=== PATIENT | female | born 1950 | race Caucasian/White ===

== ENCOUNTER 2017-01-15 09:02 | Emergency (ER) | payer MEDICARE ==
[~2017-01-15] VITALS: Ht 167.6 cm; Wt 107.3 kg
[~2017-01-15 09:02] MED LIST: AMLO5TAB2 PO; CARV-39 PO; CARV6.252 PO; DOXY100T PO; FAMO20TA7 PO; FOLI-17 PO; FURO20TA3 PO; HYDR-3307 PO; HYDR-3343 PO; MULT-484 PO; Magnesium Oxide PO; NICO1PAT5 TD; PANT40TA5 PO; POTA20PA PO; PRED20TA PO; PRED50TA PO; THIA100T10 PO; TRAM-28 PO
[2017-01-15] MEDS ORDERED: SODIUM CHLORIDE 0.9% 1,000ML IVBOLUS ONE (09:30)
[2017-01-15] MEDS ORDERED: SODIUM CHLORIDE FLUSH 10ML SYR IVF ONE (09:30)
[2017-01-15] MEDS ORDERED: ONDANSETRON 2MG/ML, 2ML IVPush ONE (09:30)
[2017-01-15] MEDS ORDERED: ONDANSETRON 2MG/ML, 2ML ONE (09:30)
[2017-01-15] MEDS ORDERED: MORPHINE SULFATE 4 MG/ML, 1ML ONE ×2 (09:30→09:48)
[2017-01-15] MEDS: MORPHINE SULFATE 4 MG/ML, 1ML IVPush PRN ×2 (09:32→09:53)
[2017-01-15 10:15] LABS: HEMOGLOBIN 12.6 g/dL (11.7-16.4)
[2017-01-15 10:25] LABS: ASPARTATE AMINO TRANSFERASE 38 U/L (15-37); BLOOD UREA NITROGEN 10 mg/dL (7-18)
[2017-01-15] MEDS ORDERED: HYDROmorphone 1 MG/ML, 1ML ONE (10:44)
[2017-01-15] MEDS ORDERED: HYDROmorphone 1 MG/ML, 1ML IVPush PRN (11:00)
[2017-01-15] MEDS ORDERED: OMNIPAQUE 350 MG/ML, 100ML BOTTLE ONE (11:07)
[2017-01-15 11:35] VITALS: BP 133/51
[2017-01-16] MEDS ORDERED: POTA20TA91 PO (17:36)
== END 2017-01-15 13:11 | disposition home or self-care (01) ==
LOC: ED 11:18
DX: K70.30 Alcoholic cirrhosis of liver without ascites (principal); F10.20 Alcohol dependence, uncomplicated; F17.210 Nicotine dependence, cigarettes, uncomplicated
CPT/HCPCS: 36415; 74177; 80053; 81001; 83690; 85025; 87086; 96361; 96374; 96375; 99285; J1170; J2405; J7030; Q9967

== ENCOUNTER 2017-01-16 15:18 | Emergency (ER) | payer MEDICARE ==
[~2017-01-16] VITALS: Ht 167.6 cm; Wt 108.7 kg
[2017-01-16] MEDS ORDERED: POTA20TA91 PO (17:36)
[2017-01-16 18:22] LABS: HEMOGLOBIN 10.9 g/dL (11.7-16.4)
[2017-01-16] MEDS ORDERED: ONDANSETRON ODT 4 MG PO ONE (18:30)
[2017-01-16] MEDS ORDERED: HYDROmorphone 1 MG/ML, 1ML IM ONE (18:30)
[2017-01-16 18:31] LABS: ASPARTATE AMINO TRANSFERASE 36 U/L (15-37); BLOOD UREA NITROGEN 17 mg/dL (7-18)
[2017-01-16] MEDS ORDERED: ONDANSETRON 2MG/ML, 2ML ONE (18:44)
[2017-01-16] MEDS ORDERED: HYDROmorphone 1 MG/ML, 1ML ONE (18:44)
[2017-01-16] MEDS ORDERED: HYDROmorphone 1 MG/ML, 1ML IVPush PRN (19:00)
[2017-01-16] MEDS ORDERED: SODIUM CHLORIDE FLUSH 10ML SYR IVF ONE (19:00)
[2017-01-16] MEDS ORDERED: ONDANSETRON 2MG/ML, 2ML IVPush ONE (19:00)
[2017-01-16] MEDS ORDERED: SODIUM CHLORIDE 0.9% 1,000ML IVBOLUS ONE (19:00)
[2017-01-16 19:37] VITALS: BP 129/65
== END 2017-01-16 20:07 | disposition home or self-care (01) ==
LOC: ED 18:16
DX: K70.30 Alcoholic cirrhosis of liver without ascites (principal); D64.9 Anemia, unspecified; E87.1 Hypo-osmolality and hyponatremia; E66.01 Morbid (severe) obesity due to excess calories; Z68.38 Body mass index [BMI] 38.0-38.9, adult; I11.0 Hypertensive heart disease with heart failure; Z90.49 Acquired absence of other specified parts of digestive tract; Z90.710 Acquired absence of both cervix and uterus; Z88.0 Allergy status to penicillin
CPT/HCPCS: 36415; 76700; 80053; 81001; 83690; 85025; 96361; 96374; 96375; 99285; J1170; J2405; J7030

== ENCOUNTER 2017-01-20 12:30 | Inpatient (IN) | payer MEDICARE ==
[~2017-01-20] VITALS: Ht 167.6 cm; Wt 111.3 kg
[~2017-01-20 12:30] MED LIST changes: +POTA20TA91 PO
[2017-01-20] MEDS ORDERED: FAMO40TA4 PO (12:58)
[2017-01-20] MEDS ORDERED: SODIUM CHLORIDE FLUSH 10ML SYR IVF ONE (13:00)
[2017-01-20] MEDS ORDERED: methylPREDNISolone SOD SUCC 125 MG/2 ML IVP ONE (13:00)
[2017-01-20] MEDS ORDERED: ONDA4TAB10 PO (13:00)
[2017-01-20] MEDS ORDERED: methylPREDNISolone SOD SUCC 125 MG/2 ML ONE (13:24)
[2017-01-20 13:26] LABS: HEMOGLOBIN 10.3 g/dL (11.7-16.4)
[2017-01-20 13:36] LABS: ASPARTATE AMINO TRANSFERASE 35 U/L (15-37); BLOOD UREA NITROGEN 17 mg/dL (7-18)
[2017-01-20 13:42] LABS: IS PT STATUS REG ER OR PRE ER? YES
[2017-01-20 13:48] LABS: ABG COLLECTION SITE RIGHT RADIAL; COLLATERAL CIRCULATION TESTING NORMAL
[2017-01-20] MEDS ORDERED: FUROSEMIDE 40 MG/4 ML ONE (13:48)
[2017-01-20] MEDS ORDERED: NITROGLYCERIN OINT 2%, 1GM TP ONE ×2 (13:48→14:00)
[2017-01-20] MEDS ORDERED: MORPHINE SULFATE 4 MG/ML, 1ML ONE (13:48)
[2017-01-20] MEDS ORDERED: FUROSEMIDE 40 MG/4 ML IV ONE (14:00)
[2017-01-20] MEDS ORDERED: morphine SULFATE 10 MG/ML, 1ML IVPush ONE (14:00)
[2017-01-20] MEDS ORDERED: ASPIRIN 81 MG TABLET CHEW PO ONE (14:00)
[2017-01-20] MEDS ORDERED: ASPIRIN 81 MG TABLET CHEW ONE (14:23)
[2017-01-20] MEDS ORDERED: HEPARIN 5,000 UNITS/ML, 1ML IV ONE (14:30)
[2017-01-20] MEDS ORDERED: HEPARIN 25,000 UNITS/500ML PMX 500 ML IV PRN (14:30)
[2017-01-20] MEDS ORDERED: HEPARIN 25,000 UNITS/500ML PMX 500 ML ONE (14:33)
[2017-01-20] MEDS ORDERED: HEPARIN 5,000 UNITS/ML, 1ML ONE (14:33)
[2017-01-20] MEDS ORDERED: ACETAMINOPHEN 325 MG TABLET PO PRN (15:00)
[2017-01-20] MEDS ORDERED: ONDANSETRON 2MG/ML, 2ML IVP PRN (15:00)
[2017-01-20] MEDS ORDERED: ENALAPRILAT 1.25 MG/ML, 2ML IVPush PRN (15:00)
[2017-01-20 17:00] VITALS: BP 119/71
[2017-01-20] MEDS ORDERED: ALBUTEROL SULFATE 2.5 MG/3 ML NPPB PRN (17:00)
[2017-01-20] MEDS: HYDROcodone/APAP 5/325 TABLET PO PRN (17:26)
[2017-01-20] MEDS: FUROSEMIDE 20 MG/2 ML IV SCH (17:27)
[2017-01-20] MEDS: METOPROLOL TARTRATE 50 MG TABLET PO SCH (17:52)
[2017-01-20] MEDS: NICOTINE 14MG/24 HR PATCH.TD24 TD SCH (17:53)
[2017-01-20 18:16] VITALS: BP 119/71
[2017-01-20 18:48] VITALS: BP 129/72
[2017-01-20] MEDS: ATORVASTATIN 40 MG TABLET PO SCH (20:18)
[2017-01-20] MEDS: MORPHINE SULFATE 4 MG/ML, 1ML IVPush PRN (20:47)
[2017-01-20 21:21] LABS: IS PT STATUS REG ER OR PRE ER? NO
[2017-01-20] MEDS: HEPARIN 5,000 UNITS/ML, 1ML IV PRN (22:34)
[2017-01-21] MEDS: MORPHINE SULFATE 4 MG/ML, 1ML IVPush PRN ×5 (01:48→23:01)
[2017-01-21 01:49] VITALS: BP 138/81
[2017-01-21] MEDS: HYDROcodone/APAP 5/325 TABLET PO PRN ×3 (04:17→20:51)
[2017-01-21 05:54] LABS: ASPARTATE AMINO TRANSFERASE 30 U/L (15-37); BLOOD UREA NITROGEN 25 mg/dL (7-18)
[2017-01-21 05:56] LABS: IS PT STATUS REG ER OR PRE ER? NO
[2017-01-21] MEDS: HEPARIN 5,000 UNITS/ML, 1ML IV PRN (06:02)
[2017-01-21] MEDS: METOPROLOL TARTRATE 50 MG TABLET PO SCH ×2 (06:03→17:57)
[2017-01-21] MEDS: ASPIRIN 81 MG TABLET EC PO SCH (06:03)
[2017-01-21 06:06] LABS: HEMOGLOBIN 10.3 g/dL (11.7-16.4)
[2017-01-21 08:17] VITALS: BP 130/75
[2017-01-21] MEDS: FUROSEMIDE 20 MG/2 ML IV SCH ×2 (08:27→17:09)
[2017-01-21] MEDS: POTASSIUM CHLORIDE 20 MEQ TAB.ER.PRT PO SCH (08:28)
[2017-01-21] MEDS: PANTOPROZOLE 40MG TABLET PO SCH (08:28)
[2017-01-21] MEDS: methylPREDNISolone SOD SUCC 125 MG/2 ML IVPush SCH ×2 (13:45→20:28)
[2017-01-21] MEDS: ENOXAPARIN 40 MG/0.4 ML SQ SCH (15:52)
[2017-01-21] MEDS: NICOTINE 14MG/24 HR PATCH.TD24 TD SCH (15:52)
[2017-01-21 16:44] VITALS: BP 146/77
[2017-01-21 18:31] VITALS: BP 120/66
[2017-01-21] MEDS: ATORVASTATIN 40 MG TABLET PO SCH (20:28)
[2017-01-21] MEDS: TEMAZEPAM 15 MG CAPSULE PO PRN (23:01)
[2017-01-22 01:33] VITALS: BP 123/60
[2017-01-22] MEDS: methylPREDNISolone SOD SUCC 125 MG/2 ML IVPush SCH ×4 (03:24→21:09)
[2017-01-22] MEDS: MORPHINE SULFATE 4 MG/ML, 1ML IVPush PRN ×3 (03:25→21:09)
[2017-01-22 05:13] LABS: HEMOGLOBIN 9.8 g/dL (11.7-16.4)
[2017-01-22 05:56] LABS: BLOOD UREA NITROGEN 37 mg/dL (7-18)
[2017-01-22] MEDS: METOPROLOL TARTRATE 50 MG TABLET PO SCH ×2 (06:35→17:23)
[2017-01-22] MEDS: ASPIRIN 81 MG TABLET EC PO SCH (06:35)
[2017-01-22 08:08] VITALS: BP 126/68
[2017-01-22] MEDS: POTASSIUM CHLORIDE 20 MEQ TAB.ER.PRT PO SCH (08:47)
[2017-01-22] MEDS: PANTOPROZOLE 40MG TABLET PO SCH (08:48)
[2017-01-22] MEDS: FUROSEMIDE 20 MG/2 ML IV SCH ×2 (08:48→17:21)
[2017-01-22 13:49] VITALS: BP 143/78
[2017-01-22] MEDS: ENOXAPARIN 40 MG/0.4 ML SQ SCH (13:54)
[2017-01-22] MEDS: NICOTINE 14MG/24 HR PATCH.TD24 TD SCH (13:55)
[2017-01-22] MEDS: HYDROcodone/APAP 5/325 TABLET PO PRN (14:04)
[2017-01-22 20:30] VITALS: BP 124/70
[2017-01-22] MEDS: TEMAZEPAM 15 MG CAPSULE PO PRN (21:09)
[2017-01-22] MEDS: ATORVASTATIN 40 MG TABLET PO SCH (21:09)
[2017-01-23] MEDS: methylPREDNISolone SOD SUCC 125 MG/2 ML IVPush SCH ×3 (01:25→15:46)
[2017-01-23] MEDS: HYDROcodone/APAP 5/325 TABLET PO PRN (01:25)
[2017-01-23 03:18] VITALS: BP 144/73
[2017-01-23] MEDS: MORPHINE SULFATE 4 MG/ML, 1ML IVPush PRN (04:53)
[2017-01-23] MEDS: ASPIRIN 81 MG TABLET EC PO SCH (04:57)
[2017-01-23] MEDS: METOPROLOL TARTRATE 50 MG TABLET PO SCH (04:57)
[2017-01-23 05:36] LABS: BLOOD UREA NITROGEN 41 mg/dL (7-18); HEMOGLOBIN 10.5 g/dL (11.7-16.4)
[2017-01-23 05:38] LABS: ASPARTATE AMINO TRANSFERASE 43 U/L (15-37)
[2017-01-23 06:53] VITALS: BP 137/73
[2017-01-23] MEDS: PANTOPROZOLE 40MG TABLET PO SCH (07:57)
[2017-01-23] MEDS: FUROSEMIDE 20 MG/2 ML IV SCH (07:57)
[2017-01-23 13:19] VITALS: BP 133/70
[2017-01-23] MEDS: POTASSIUM CHLORIDE 20 MEQ TAB.ER.PRT PO SCH (15:46)
[2017-01-23] MEDS: ENOXAPARIN 40 MG/0.4 ML SQ SCH (15:46)
[2017-01-23] MEDS: NICOTINE 14MG/24 HR PATCH.TD24 TD SCH (15:47)
[2017-01-23] MEDS ORDERED: METO50TA82 PO (17:05)
[2017-01-23] MEDS ORDERED: ATOR40TA78 PO (17:05)
[2017-01-23] MEDS ORDERED: FURO40TA6 PO (17:05)
[2017-01-23] MEDS ORDERED: PRED10TA PO (17:05)
[2017-01-24] MEDS ORDERED: FUROSEMIDE 40 MG TABLET PO SCH (09:00)
== END 2017-01-23 18:19 | disposition home or self-care (01) | DRG 280 ==
LOC: ED 12:47 → EDIP 13:58 → 5SO 16:12
PROVIDERS: ADMIT Internal Medicine; ATTEND Internal Medicine
DX: I13.0 Hypertensive heart and chronic kidney disease with heart failure and stage 1 through stage 4 chronic kidney disease, or unspecified chronic kidney disease (principal); J96.21 Acute and chronic respiratory failure with hypoxia; I21.4 Non-ST elevation (NSTEMI) myocardial infarction; I50.31 Acute diastolic (congestive) heart failure; R65.10 Systemic inflammatory response syndrome (SIRS) of non-infectious origin without acute organ dysfunction; E87.1 Hypo-osmolality and hyponatremia; J44.1 Chronic obstructive pulmonary disease with (acute) exacerbation; K76.6 Portal hypertension; N17.9 Acute kidney failure, unspecified; B18.2 Chronic viral hepatitis C; D72.829 Elevated white blood cell count, unspecified; E66.01 Morbid (severe) obesity due to excess calories; Z68.39 Body mass index [BMI] 39.0-39.9, adult; E78.5 Hyperlipidemia, unspecified; F10.21 Alcohol dependence, in remission; F12.90 Cannabis use, unspecified, uncomplicated; F17.200 Nicotine dependence, unspecified, uncomplicated; I34.0 Nonrheumatic mitral (valve) insufficiency; I86.4 Gastric varices; K70.9 Alcoholic liver disease, unspecified; K76.0 Fatty (change of) liver, not elsewhere classified; K76.1 Chronic passive congestion of liver; N18.2 Chronic kidney disease, stage 2 (mild); T50.2X5A Adverse effect of carbonic-anhydrase inhibitors, benzothiadiazides and other diuretics, initial encounter; Z80.1 Family history of malignant neoplasm of trachea, bronchus and lung; Z80.3 Family history of malignant neoplasm of breast; Z82.49 Family history of ischemic heart disease and other diseases of the circulatory system; Z85.3 Personal history of malignant neoplasm of breast; Z87.01 Personal history of pneumonia (recurrent); Z90.49 Acquired absence of other specified parts of digestive tract; Z90.710 Acquired absence of both cervix and uterus; Z91.19 Patient's noncompliance with other medical treatment and regimen; Z92.3 Personal history of irradiation; Z99.81 Dependence on supplemental oxygen; Z88.0 Allergy status to penicillin
CPT/HCPCS: 36415; 36600; 71010; 80048; 80053; 80061; 81003; 82803; 83605; 83735; 83880; 84100; 84484; 85025; 85520; 85610; 85730; 87040; 93005; 93306; 94640; 96365; 96375; J1644; J1650; J1940; J7613; J2270; J2930

== ENCOUNTER → 2017-03-22 | Outpatient (CLI) | payer MEDICARE ==
[~2017-03-22] MED LIST changes: +ATOR40TA78 PO; +FAMO40TA4 PO; +FURO40TA6 PO; +METO50TA82 PO; +ONDA4TAB10 PO; +PRED10TA PO
[2017-03-23 10:03] LABS: HEPATITIS C VIRUS ANTIBODY Reactive (Nonreactive)
== END | disposition home or self-care (01) ==
LOC: CFH 09:20
PROVIDERS: ATTEND Internal Medicine Gastroenterology
DX: K74.60 Unspecified cirrhosis of liver (principal); B18.2 Chronic viral hepatitis C; I50.9 Heart failure, unspecified; F10.10 Alcohol abuse, uncomplicated
CPT/HCPCS: 36415; 74000; 76700; 82103; 82105; 82728; 83516; 83540; 83550; 84466; 85610; 85730; 86038; 86803; 87340; 87521; 87522

== ENCOUNTER 2017-06-07 17:35 | Emergency (ER) | payer MEDICARE ==
[~2017-06-07] VITALS: Ht 167.6 cm; Wt 114.2 kg
[~2017-06-07 17:35] MED LIST changes: +NICO1PAT16 TD; -NICO1PAT5 TD; -TRAM-28 PO; +TRAM-47 PO
[2017-06-07] MEDS ORDERED: SODIUM CHLORIDE 0.9% 1,000ML IVBOLUS ONE (18:00)
[2017-06-07] MEDS ORDERED: SODIUM CHLORIDE FLUSH 10ML SYR IVF ONE (18:00)
[2017-06-07] MEDS ORDERED: ONDANSETRON 2MG/ML, 2ML IVPush ONE ×2 (18:00→19:00)
[2017-06-07 18:35] LABS: HEMATOCRIT 44.2 % (34.6-47.8); HEMOGLOBIN 14.5 g/dL (11.7-16.4); WHITE BLOOD COUNT 6.8 x10^3/uL (3.4-10)
[2017-06-07 18:47] LABS: ASPARTATE AMINO TRANSFERASE 80 U/L (15-37); BLOOD UREA NITROGEN 16 mg/dL (7-18)
[2017-06-07] MEDS ORDERED: OMNIPAQUE 350 MG/ML, 100ML BOTTLE ONE (19:00)
[2017-06-07] MEDS ORDERED: ONDANSETRON 2MG/ML, 2ML ONE (19:21)
[2017-06-07] MEDS ORDERED: MORPHINE SULFATE 4 MG/ML, 1ML ONE ×2 (19:21→20:20)
[2017-06-07] MEDS: MORPHINE SULFATE 4 MG/ML, 1ML IVPush PRN ×2 (19:24→20:23)
[2017-06-07] MEDS ORDERED: METOPROLOL TARTRATE 50 MG TABLET PO ONE (20:00)
[2017-06-07] MEDS ORDERED: METOPROLOL TARTRATE 50 MG TABLET ONE ×2 (20:15→20:21)
[2017-06-07 20:31] VITALS: BP 189/84
== END 2017-06-07 20:50 | disposition home or self-care (01) ==
LOC: ED 20:41
DX: R10.13 Epigastric pain (principal); R10.11 Right upper quadrant pain; K74.4 Secondary biliary cirrhosis; I11.0 Hypertensive heart disease with heart failure; I50.9 Heart failure, unspecified; Z90.49 Acquired absence of other specified parts of digestive tract; Z90.710 Acquired absence of both cervix and uterus
CPT/HCPCS: 36415; 74177; 80053; 81001; 83690; 85025; 85610; 87086; 96374; 96375; 96376; 99285; J2405; J7030; Q9967

== ENCOUNTER 2017-06-09 09:37 | Emergency (ER) | payer MEDICARE ==
[~2017-06-09] VITALS: Ht 167.6 cm; Wt 110.0 kg
[2017-06-09] MEDS ORDERED: SODIUM CHLORIDE FLUSH 10ML SYR IVF ONE (10:00)
[2017-06-09] MEDS ORDERED: HYDROmorphone 1 MG/ML, 1ML IVPush PRN (10:00)
[2017-06-09] MEDS ORDERED: SODIUM CHLORIDE 0.9% 1,000ML IVBOLUS ONE (10:00)
[2017-06-09 10:16] LABS: HEMATOCRIT 40.5 % (34.6-47.8); HEMOGLOBIN 13.3 g/dL (11.7-16.4); WHITE BLOOD COUNT 9.7 x10^3/uL (3.4-10)
[2017-06-09 10:27] LABS: ASPARTATE AMINO TRANSFERASE 75 U/L (15-37); BLOOD UREA NITROGEN 21 mg/dL (7-18)
[2017-06-09] MEDS ORDERED: HYDROmorphone 1 MG/ML, 1ML ONE (10:55)
[2017-06-09 13:01] VITALS: BP 140/70
== END 2017-06-09 13:04 | disposition home or self-care (01) ==
LOC: ED 12:00
DX: K74.4 Secondary biliary cirrhosis (principal); F17.200 Nicotine dependence, unspecified, uncomplicated; I11.0 Hypertensive heart disease with heart failure; I50.9 Heart failure, unspecified; J44.9 Chronic obstructive pulmonary disease, unspecified; E66.01 Morbid (severe) obesity due to excess calories; Z90.710 Acquired absence of both cervix and uterus; Z90.49 Acquired absence of other specified parts of digestive tract; Z99.81 Dependence on supplemental oxygen
CPT/HCPCS: 36415; 71010; 74000; 76700; 80053; 83690; 85025; 85610; 85730; 93005; 96374; 99285; J1170

== ENCOUNTER 2017-06-27 07:50 | Day surgery (SDC) | payer MEDICARE ==
[~2017-06-27] VITALS: Ht 167.6 cm; Wt 107.5 kg
[2017-06-27] MEDS ORDERED: SODIUM CHLORIDE 0.9% 1,000 ML IV SCH (08:16)
[2017-06-27 08:51] VITALS: BP 163/80
[2017-06-27] MEDS ORDERED: METO50TA82 PO (08:57)
[2017-06-27] MEDS ORDERED: DONE5TAB7 PO (08:57)
[2017-06-27] MEDS ORDERED: ATOR40TA78 PO (08:57)
[2017-06-27] MEDS ORDERED: THIA100T27 PO (08:57)
[2017-06-27] MEDS ORDERED: POTASSIUM PO (08:57)
[2017-06-27] MEDS ORDERED: FURO-92 PO (08:57)
[2017-06-27] MEDS ORDERED: LIDOCAINE 1%, 20ML ONE (10:00)
[2017-06-27] MEDS ORDERED: FLUMAZENIL 0.1 MG/1 ML, 5ML ONE (11:22)
[2017-06-27] MEDS ORDERED: FENTANYL PF 100 MCG/2ML ONE (11:22)
[2017-06-27] MEDS ORDERED: NALOXONE 1 MG/ML, 2ML ONE (11:22)
[2017-06-27] MEDS ORDERED: MIDAZOLAM 1 MG/ML, 5ML ONE (11:22)
[2017-06-27] MEDS ORDERED: OXYcodone IR 5MG TABLET ONE (13:09)
== END 2017-06-27 14:25 | disposition home or self-care (01) ==
LOC: OUT 07:50
PROVIDERS: ATTEND Internal Medicine Gastroenterology
DX: K74.60 Unspecified cirrhosis of liver (principal); B19.20 Unspecified viral hepatitis C without hepatic coma; I10 Essential (primary) hypertension; F17.200 Nicotine dependence, unspecified, uncomplicated; F19.90 Other psychoactive substance use, unspecified, uncomplicated; Z86.010 Personal history of colon polyps; Z90.710 Acquired absence of both cervix and uterus; Z88.0 Allergy status to penicillin; Z90.49 Acquired absence of other specified parts of digestive tract; Z98.890 Other specified postprocedural states
CPT/HCPCS: 36415; 47000; 76942; 85610; 88307; 88313; 99156; 99157; J2250; J3010; J3490; J7030; J2310

== ENCOUNTER → 2017-11-20 | Outpatient (CLI) | payer MEDICARE ==
[~2017-11-20] MED LIST changes: +DONE5TAB7 PO; +FURO-92 PO; +NICO-487 TD; -NICO1PAT16 TD; +POTASSIUM PO; +THIA100T27 PO
== END | disposition home or self-care (01) ==
LOC: CFH 08:53
PROVIDERS: ATTEND Physician Assistant
DX: K74.60 Unspecified cirrhosis of liver (principal); B19.20 Unspecified viral hepatitis C without hepatic coma
CPT/HCPCS: 76705

== ENCOUNTER 2018-05-06 13:24 | Inpatient (IN) | payer MEDICARE ==
[~2018-05-06] VITALS: Ht 167.6 cm; Wt 108.0 kg
[2018-05-06] MEDS ORDERED: SODIUM CHLORIDE FLUSH 10ML SYR IVF ONE (13:30)
[2018-05-06] MEDS ORDERED: ONDANSETRON ODT 4 MG PO ONE (14:00)
[2018-05-06] MEDS ORDERED: PLEASE ENTER HEIGHT AND WEIGHT MC SCH (14:00)
[2018-05-06] MEDS ORDERED: MORPHINE SULFATE 4 MG/ML, 1ML IVPush ONE (14:00)
[2018-05-06] MEDS ORDERED: SODIUM CHLORIDE 0.9% 1,000ML IVBOLUS ONE (14:00)
[2018-05-06 14:03] LABS: BASOPHILS % (AUTO) 1 % (0-1); EOSINOPHILS # (AUTO) 0.36 x10^3/uL (0-0.4); EOSINOPHILS % (AUTO) 5 % (1-7); LYMPHOCYTES # (AUTO) 2.12 x10^3/uL (1-3.4); LYMPHOCYTES % (AUTO) 28 % (22-44); MD NO; MEAN CORPUSCULAR HEMOGLOBIN 31.3 pg (27.0-34.8); MEAN CORPUSCULAR HGB CONC 33.9 g/dL (32.4-35.8); MEAN CORPUSCULAR VOLUME 92.3 fL (80-100); MEAN PLATELET VOLUME 9.1 fL (7.4-10.4); MONOCYTES # (AUTO) 0.43 x10^3/uL (0.2-0.8); MONOCYTES % (AUTO) 6 % (2-9); NEUTROPHILS # (AUTO) 4.61 x10^3/uL (1.8-6.8); NEUTROPHILS % (AUTO) 60 % (42-75); PLATELET COUNT 179 x10^3/uL (130-400); RED BLOOD COUNT 4.71 x10^6/uL (3.82-5.3); RED CELL DISTRIBUTION WIDTH 13.2 % (9.6-15.2)
[2018-05-06 14:16] LABS: ALANINE AMINOTRANSFERASE 24 U/L (12-78); ALBUMIN 3.5 g/dL (3.4-5.0); ANION GAP 5 mmol/L (5-15); CALCIUM 8.6 mg/dL (8.5-10.1); CHLORIDE 108 mmol/L (98-107)
[2018-05-06] MEDS ORDERED: ONDANSETRON 2MG/ML, 2ML ONE (14:18)
[2018-05-06] MEDS ORDERED: ONDANSETRON ODT 4 MG ONE (14:18)
[2018-05-06] MEDS ORDERED: MORPHINE SULFATE 4 MG/ML, 1ML ONE (14:18)
[2018-05-06 14:20] LABS: ALKALINE PHOSPHATASE 100 U/L (45-117); BILIRUBIN,TOTAL 0.8 mg/dL (0.2-1.0); TOTAL PROTEIN 7.4 g/dL (6.4-8.2); TROPONIN I < 0.015 ng/mL (0.000-0.045)
[2018-05-06] MEDS ORDERED: TRAZ150T62 PO (14:46)
[2018-05-06 14:50] LABS: INTERNATIONAL NORMALIZED RATIO 1.06 (0.93-1.1)
[2018-05-06] MEDS ORDERED: IRBE300T16 PO (14:50)
[2018-05-06] MEDS ORDERED: AMLO10TA2 PO (14:50)
[2018-05-06 15:24] LABS: T4 (THYROXINE) 11.6 mcg/dL (4.8-13.9)
[2018-05-06] MEDS ORDERED: BISACODYL 10 MG SUPP PR PRN (16:30)
[2018-05-06] MEDS ORDERED: LABETALOL 5MG/ML, 20ML IVPush PRN (16:30)
[2018-05-06] MEDS ORDERED: hydrALAzine 20 MG/ML, 1ML IVPush PRN (16:30)
[2018-05-06] MEDS ORDERED: ONDANSETRON 2MG/ML, 2ML IVPush PRN (16:30)
[2018-05-06] MEDS ORDERED: ENALAPRILAT 1.25 MG/ML, 2ML IVPush PRN (16:30)
[2018-05-06] MEDS ORDERED: POLYETHYLENE GLYCOL 17 GM PACKET PO PRN (16:30)
[2018-05-06] MEDS ORDERED: DOCUSATE 100 MG CAPSULE PO PRN (16:30)
[2018-05-06] MEDS ORDERED: NICOTINE 14MG/24 HR PATCH.TD24 TD SCH (16:30)
[2018-05-06 16:40] LABS: MICROSCOPIC AUTO
[2018-05-06 16:41] LABS: CULTURE INDICATED? NO
[2018-05-06 17:09] LABS: TROPONIN I < 0.015 ng/mL (0.000-0.045)
[2018-05-06 17:27] LABS: HEMOGLOBIN A1C 5.7 % (4.2-6.3)
[2018-05-06] MEDS: HEPARIN 5,000 UNITS/ML, 1ML SQ SCH ×2 (17:30→17:38)
[2018-05-06] MEDS: ACETAMINOPHEN 325 MG TABLET PO PRN (17:38)
[2018-05-06 17:40] VITALS: BP 138/66
[2018-05-06 18:59] VITALS: BP 130/77
[2018-05-06 19:01] VITALS: BP_SYST 138; BP_SYST 146; BP_DIAS 66; BP_DIAS 74
[2018-05-06] MEDS: METOPROLOL TARTRATE 50 MG TABLET PO SCH (20:19)
[2018-05-06] MEDS ORDERED: ATORVASTATIN 40 MG TABLET PO SCH (21:00)
[2018-05-06 22:36] LABS: TROPONIN I < 0.015 ng/mL (0.000-0.045)
[2018-05-07] VITALS (8 sets, daily range): BP systolic 122–169; BP diastolic 63–79
[2018-05-07] MEDS: HEPARIN 5,000 UNITS/ML, 1ML SQ SCH ×2 (01:10→09:24)
[2018-05-07] MEDS: ACETAMINOPHEN 325 MG TABLET PO PRN (03:47)
[2018-05-07 05:27] LABS: BASOPHILS # (AUTO) 0.08 x10^3/uL (0-0.1); BASOPHILS % (AUTO) 1 % (0-1); EOSINOPHILS # (AUTO) 0.34 x10^3/uL (0-0.4); EOSINOPHILS % (AUTO) 4 % (1-7); LYMPHOCYTES # (AUTO) 2.54 x10^3/uL (1-3.4); LYMPHOCYTES % (AUTO) 32 % (22-44); MD NO; MEAN CORPUSCULAR HGB CONC 34.4 g/dL (32.4-35.8); MEAN CORPUSCULAR VOLUME 92.9 fL (80-100); MONOCYTES # (AUTO) 0.49 x10^3/uL (0.2-0.8); MONOCYTES % (AUTO) 6 % (2-9); NEUTROPHILS # (AUTO) 4.46 x10^3/uL (1.8-6.8); NEUTROPHILS % (AUTO) 56 % (42-75); PLATELET COUNT 159 x10^3/uL (130-400); RED CELL DISTRIBUTION WIDTH 13.8 % (9.6-15.2)
[2018-05-07 05:39] LABS: CALCIUM 8.8 mg/dL (8.5-10.1); CHLORIDE 109 mmol/L (98-107)
[2018-05-07 05:43] LABS: CREATININE 1.06 mg/dL (0.55-1.02)
[2018-05-07 05:46] LABS: ANION GAP 7 mmol/L (5-15)
[2018-05-07] MEDS ORDERED: MAGNESIUM SULFATE PMX 2GM/50ML 50 ML IV ONE (07:00)
[2018-05-07] MEDS ORDERED: POTASSIUM CHLORIDE 20 MEQ TAB.ER.PRT PO SCH (09:00)
[2018-05-07] MEDS ORDERED: THIAMINE 100MG TABLET PO SCH (09:00)
[2018-05-07] MEDS ORDERED: TRAZODONE 150MG TABLET PO SCH (09:00)
[2018-05-07] MEDS ORDERED: DONEPEZIL 5 MG TABLET PO SCH (09:00)
[2018-05-07] MEDS ORDERED: AMLODIPINE 5 MG TABLET PO SCH (09:00)
[2018-05-07] MEDS ORDERED: FUROSEMIDE 40 MG TABLET PO SCH (09:00)
[2018-05-07] MEDS ORDERED: IRBESARTAN 300 MG TABLET PO SCH (09:00)
[2018-05-07] MEDS: METOPROLOL TARTRATE 50 MG TABLET PO SCH (09:23)
== END 2018-05-07 16:45 | disposition home or self-care (01) | DRG 74 ==
LOC: ED 15:50 → EDIP 16:23 → 4EST 17:01 → DCLOUNGE 05-07 16:24
PROVIDERS: ADMIT Internal Medicine; ATTEND Internal Medicine
DX: G90.9 Disorder of the autonomic nervous system, unspecified (principal); E66.01 Morbid (severe) obesity due to excess calories; F17.210 Nicotine dependence, cigarettes, uncomplicated; I11.0 Hypertensive heart disease with heart failure; I50.9 Heart failure, unspecified; J44.9 Chronic obstructive pulmonary disease, unspecified; K74.60 Unspecified cirrhosis of liver; B18.2 Chronic viral hepatitis C; R55 Syncope and collapse; R73.9 Hyperglycemia, unspecified; W18.39XA Other fall on same level, initial encounter; Z90.49 Acquired absence of other specified parts of digestive tract; Z90.12 Acquired absence of left breast and nipple; Z90.710 Acquired absence of both cervix and uterus; Z85.3 Personal history of malignant neoplasm of breast; Y93.89 Activity, other specified; Y92.89 Other specified places as the place of occurrence of the external cause; Y99.8 Other external cause status; Z68.38 Body mass index [BMI] 38.0-38.9, adult
CPT/HCPCS: 36415; 70450; 71045; 80048; 80053; 81001; 83036; 83735; 83880; 84100; 84436; 84443; 84481; 84484; 85025; 85610; 93005; 93306; 93880; 96374; 99285; J1644; Q0162; J3475; J7030

== ENCOUNTER 2018-07-07 18:06 | Emergency (ER) | payer MEDICARE ==
[~2018-07-07] VITALS: Ht 167.6 cm; Wt 105.9 kg
[~2018-07-07 18:06] MED LIST changes: +AMLO10TA6 PO; -AMLO5TAB2 PO; +AMLO5TAB7 PO; +IRBE300T16 PO; -POTA20PA PO; +POTA20PA31 PO; +TRAZ150T62 PO
[2018-07-07 18:21] VITALS: BP 147/66
[2018-07-07] MEDS ORDERED: KETOROLAC 30 MG/1 ML IM ONE (19:00)
[2018-07-07 19:02] LABS: BASOPHILS # (AUTO) 0.06 x10^3/uL (0-0.1); BASOPHILS % (AUTO) 1 % (0-1); EOSINOPHILS # (AUTO) 0.25 x10^3/uL (0-0.4); EOSINOPHILS % (AUTO) 3 % (1-7); LYMPHOCYTES # (AUTO) 2.09 x10^3/uL (1-3.4); LYMPHOCYTES % (AUTO) 22 % (22-44); MD NO; MEAN CORPUSCULAR HEMOGLOBIN 31.4 pg (27.0-34.8); MEAN CORPUSCULAR HGB CONC 34.1 g/dL (32.4-35.8); MEAN CORPUSCULAR VOLUME 91.9 fL (80-100); MEAN PLATELET VOLUME 9.4 fL (7.4-10.4); MONOCYTES # (AUTO) 0.77 x10^3/uL (0.2-0.8); MONOCYTES % (AUTO) 8 % (2-9); NEUTROPHILS # (AUTO) 6.14 x10^3/uL (1.8-6.8); NEUTROPHILS % (AUTO) 66 % (42-75); PLATELET COUNT 184 x10^3/uL (130-400); RED BLOOD COUNT 4.94 x10^6/uL (3.82-5.3); RED CELL DISTRIBUTION WIDTH 12.8 % (9.6-15.2)
[2018-07-07] MEDS ORDERED: KETOROLAC 30 MG/1 ML ONE (19:02)
[2018-07-07 19:06] LABS: HCT (SEDRATE) 45.4 % (34.6-47.8)
[2018-07-07 19:10] LABS: ALANINE AMINOTRANSFERASE 21 U/L (12-78); ALBUMIN 3.5 g/dL (3.4-5.0); ANION GAP 9 mmol/L (5-15); CALCIUM 8.7 mg/dL (8.5-10.1); CHLORIDE 103 mmol/L (98-107); CREATININE 1.09 mg/dL (0.55-1.02)
[2018-07-07 19:16] LABS: ALKALINE PHOSPHATASE 125 U/L (45-117); BILIRUBIN,TOTAL 0.9 mg/dL (0.2-1.0); TOTAL PROTEIN 7.9 g/dL (6.4-8.2)
== END 2018-07-07 19:56 | disposition home or self-care (01) ==
LOC: ED 19:40
DX: M77.9 Enthesopathy, unspecified (principal); M65.4 Radial styloid tenosynovitis [de Quervain]; I10 Essential (primary) hypertension
CPT/HCPCS: 29125; 36415; 73110; 80053; 84550; 85025; 85651; 86140; 96372; 99285; J1885

== ENCOUNTER 2018-10-07 19:10 | Emergency (ER) | payer MEDICARE ==
[~2018-10-07] VITALS: Ht 167.6 cm; Wt 110.0 kg
[~2018-10-07 19:10] MED LIST changes: +AMLO-150 PO; -AMLO5TAB7 PO
[2018-10-07] MEDS ORDERED: SODIUM CHLORIDE FLUSH 10ML SYR IVF ONE (19:30)
[2018-10-07 19:44] LABS: BASOPHILS # (AUTO) 0.12 x10^3/uL (0-0.1); BASOPHILS % (AUTO) 2 % (0-1); EOSINOPHILS # (AUTO) 0.29 x10^3/uL (0-0.4); EOSINOPHILS % (AUTO) 4 % (1-7); LYMPHOCYTES # (AUTO) 1.79 x10^3/uL (1-3.4); LYMPHOCYTES % (AUTO) 27 % (22-44); MD NO; MEAN CORPUSCULAR HEMOGLOBIN 30.9 pg (27.0-34.8); MEAN PLATELET VOLUME 9.3 fL (7.4-10.4); MONOCYTES # (AUTO) 0.35 x10^3/uL (0.2-0.8); MONOCYTES % (AUTO) 5 % (2-9); NEUTROPHILS # (AUTO) 4.15 x10^3/uL (1.8-6.8); NEUTROPHILS % (AUTO) 62 % (42-75); PLATELET COUNT 174 x10^3/uL (130-400); RED CELL DISTRIBUTION WIDTH 13.6 % (9.6-15.2)
[2018-10-07 19:54] LABS: INTERNATIONAL NORMALIZED RATIO 1.1 (0.93-1.1); PROTHROMBIN TIME 11.6 Seconds (9.6-11.5)
[2018-10-07 19:55] LABS: ALANINE AMINOTRANSFERASE 23 U/L (12-78); ALBUMIN 3.4 g/dL (3.4-5.0); ANION GAP 6 mmol/L (5-15); CALCIUM 8.5 mg/dL (8.5-10.1); CHLORIDE 109 mmol/L (98-107); CREATININE 1.35 mg/dL (0.55-1.02)
[2018-10-07 20:00] LABS: ALKALINE PHOSPHATASE 116 U/L (45-117); BILIRUBIN,TOTAL 0.7 mg/dL (0.2-1.0); TOTAL PROTEIN 7.2 g/dL (6.4-8.2); TROPONIN I < 0.015 ng/mL (0.000-0.045)
[2018-10-07 20:10] VITALS: BP 134/49
== END 2018-10-07 21:00 | disposition home or self-care (01) ==
LOC: ED 20:51
DX: R55 Syncope and collapse (principal); R53.1 Weakness; F17.200 Nicotine dependence, unspecified, uncomplicated; J44.9 Chronic obstructive pulmonary disease, unspecified; I25.2 Old myocardial infarction; I11.0 Hypertensive heart disease with heart failure; I50.9 Heart failure, unspecified; Z90.49 Acquired absence of other specified parts of digestive tract; Z90.89 Acquired absence of other organs; Z90.710 Acquired absence of both cervix and uterus; Z88.0 Allergy status to penicillin; Z85.3 Personal history of malignant neoplasm of breast
CPT/HCPCS: 36415; 71045; 80053; 83880; 84484; 85025; 85610; 85730; 93005; 99284

== ENCOUNTER → 2019-01-15 | Outpatient (CLI) | payer MEDICARE ==
[~2019-01-15] MED LIST changes: -AMLO10TA6 PO; +AMLO10TA8 PO
== END | disposition home or self-care (01) ==
LOC: RAD 16:22
PROVIDERS: ATTEND Internal Medicine Cardiovascular Disease
DX: E78.5 Hyperlipidemia, unspecified (principal); I34.0 Nonrheumatic mitral (valve) insufficiency; I50.32 Chronic diastolic (congestive) heart failure; J44.9 Chronic obstructive pulmonary disease, unspecified; K74.60 Unspecified cirrhosis of liver; I12.9 Hypertensive chronic kidney disease with stage 1 through stage 4 chronic kidney disease, or unspecified chronic kidney disease; N18.9 Chronic kidney disease, unspecified
CPT/HCPCS: 71046

== ENCOUNTER → 2019-01-30 | Outpatient (CLI) | payer MEDICARE | END | disposition home or self-care (01) | LOC: CFH 15:27 | PROVIDERS: ATTEND Internal Medicine Cardiovascular Disease | DX: I08.0 Rheumatic disorders of both mitral and aortic valves (principal); I10 Essential (primary) hypertension; E78.5 Hyperlipidemia, unspecified; J44.9 Chronic obstructive pulmonary disease, unspecified; F17.210 Nicotine dependence, cigarettes, uncomplicated; Z85.3 Personal history of malignant neoplasm of breast | CPT/HCPCS: 93306 ==

== ENCOUNTER → 2020-09-15 | Outpatient (CLI) | payer MEDICARE ==
[~2020-09-15] MED LIST changes: +AMLO-211 PO; -AMLO10TA8 PO; +HYDR-3246 PO; -HYDR-3307 PO; -IRBE300T16 PO; +IRBE300T8 PO; -PANT40TA5 PO; +PANT40TA6 PO
== END | disposition home or self-care (01) ==
LOC: CVU 13:07
PROVIDERS: ATTEND Internal Medicine Cardiovascular Disease
DX: I08.0 Rheumatic disorders of both mitral and aortic valves (principal); I11.9 Hypertensive heart disease without heart failure
CPT/HCPCS: 93306

== ENCOUNTER 2021-05-06 17:29 | Emergency (ER) | payer MEDICARE ==
[~2021-05-06] VITALS: Ht 167.6 cm; Wt 127.2 kg
[~2021-05-06 17:29] MED LIST changes: -FOLI-17 PO; +FOLI1TAB32 PO; -HYDR-3246 PO; +HYDR-3248 PO; -NICO-487 TD; +NICO-587 TD
[2021-05-06 17:32] VITALS: BP 147/90
[2021-05-06] MEDS ORDERED: FLUORESCEIN OPHTHALMIC 1 MG STRIP ONE (18:01)
[2021-05-06] MEDS ORDERED: PROPARACAINE OPHTH 0.5%, 15ML ONE (18:01)
--- NOTE | 2021-05-06 18:06 | NUR ---
DR RO IS WITH PT AT BS AT THIS TIME FOR PT HISTORY AND ASSESSMENT.
[2021-05-06] MEDS ORDERED: VALACYCLOVIR 500MG TABLET PO ONE (18:30)
--- NOTE | 2021-05-06 18:33 | NUR ---
MEDICATIONS REQUESTED FROM PHARMACY AT THIS TIME.
--- NOTE | 2021-05-06 19:02 | NUR ---
PT MEDICATED PER DEC. PT D/C WITH D/C SUMMARY AND SCRIPTS. PT VERBALIZES UNDERSTANDING OF NEED FOR F/U INSTRUCTIONS WITH OPTHAMOLOGIST, AND VERBALIZES HOME CARE INSTRUCTIONS. PT WHEELED IN WHEELCHAIR BY FAMILY TO REGISTRATION DESK FOR D/C HOME. PT DENIES ANY OTHER NEEDS PERTAINING TO THIS VISIT.
== END 2021-05-06 19:05 | disposition home or self-care (01) ==
LOC: ED 19:02
DX: B02.9 Zoster without complications (principal); J44.9 Chronic obstructive pulmonary disease, unspecified; I10 Essential (primary) hypertension; I25.2 Old myocardial infarction; E66.01 Morbid (severe) obesity due to excess calories; Z85.3 Personal history of malignant neoplasm of breast; Z90.89 Acquired absence of other organs; Z90.49 Acquired absence of other specified parts of digestive tract; Z90.710 Acquired absence of both cervix and uterus; Z68.42 Body mass index [BMI] 45.0-49.9, adult
CPT/HCPCS: 99283

== ENCOUNTER 2021-05-08 02:47 | Inpatient (IN) | payer MEDICARE ==
[~2021-05-08] VITALS: Ht 167.6 cm; Wt 132.3 kg
[2021-05-08] MEDS ORDERED: ONDANSETRON 2MG/ML, 2ML IVPush ONE (03:30)
[2021-05-08] MEDS ORDERED: SODIUM CHLORIDE 0.9% 1,000ML IVBOLUS ONE (03:30)
[2021-05-08] MEDS ORDERED: FLUORESCEIN OPHTHALMIC 1 MG STRIP LEFTEYE ONE (03:30)
[2021-05-08] MEDS ORDERED: ACYCLOVIR IV ONE (03:30)
[2021-05-08] MEDS ORDERED: SODIUM CHLORIDE FLUSH 10ML SYR IVF ONE (03:30)
[2021-05-08] MEDS ORDERED: MORPHINE SULFATE 4 MG/ML, 1ML IVPush PRN (03:30)
[2021-05-08] MEDS ORDERED: SODIUM CHLORIDE 0.9% IV ONE (03:30)
[2021-05-08] MEDS ORDERED: PROPARACAINE OPHTH 0.5%, 15ML LEFTEYE ONE (03:30)
[2021-05-08] MEDS ORDERED: methylPREDNISolone SOD SUCC 125 MG/2 ML IV ONE (03:30)
[2021-05-08 03:54] LABS: BASOPHILS % (AUTO) 1 % (0-1); EOSINOPHILS % (AUTO) 0 % (1-7); LYMPHOCYTES % (AUTO) 10 % (22-44); MEAN CORPUSCULAR HEMOGLOBIN 30.9 pg (27.0-34.8); MEAN CORPUSCULAR HGB CONC 33.1 g/dL (32.4-35.8); MEAN PLATELET VOLUME 8.3 fL (7.4-10.4); MONOCYTES % (AUTO) 10 % (2-9); NEUTROPHILS % (AUTO) 79 % (42-75); PLATELET COUNT 208 x10^3/uL (130-400); RED BLOOD COUNT 4.98 x10^6/uL (3.82-5.3); RED CELL DISTRIBUTION WIDTH 13.9 % (9.6-15.2)
[2021-05-08] MEDS ORDERED: FLUORESCEIN OPHTHALMIC 1 MG STRIP ONE (03:54)
[2021-05-08] MEDS ORDERED: PROPARACAINE OPHTH 0.5%, 15ML ONE ×2 (03:56→04:07)
[2021-05-08 04:02] LABS: ALANINE AMINOTRANSFERASE 21 U/L (12-78); ALBUMIN 3.4 g/dL (3.4-5.0); ANION GAP 4 mmol/L (5-15); CALCIUM 9.4 mg/dL (8.5-10.1); CHLORIDE 103 mmol/L (98-107); CREATININE 1.32 mg/dL (0.55-1.02)
[2021-05-08 04:04] LABS: ALKALINE PHOSPHATASE 82 U/L (45-117); BILIRUBIN,TOTAL 0.6 mg/dL (0.2-1.0); TOTAL PROTEIN 7.7 g/dL (6.4-8.2)
[2021-05-08] MEDS ORDERED: MORPHINE SULFATE 4 MG/ML, 1ML ONE (04:13)
[2021-05-08] MEDS ORDERED: methylPREDNISolone SOD SUCC 125 MG/2 ML ONE (04:13)
[2021-05-08] MEDS ORDERED: ONDANSETRON 2MG/ML, 2ML ONE (04:13)
[2021-05-08] MEDS ORDERED: morphine SULFATE 10 MG/ML, 1ML IVPush PRN (04:30)
[2021-05-08] MEDS ORDERED: ONDANSETRON 2MG/ML, 2ML IVPush PRN (04:30)
[2021-05-08] MEDS ORDERED: ENOXAPARIN 40 MG/0.4 ML SQ SCH (04:30)
[2021-05-08] MEDS ORDERED: LABETALOL 5MG/ML, 20ML IVPush PRN (04:30)
[2021-05-08] MEDS ORDERED: POLYETHYLENE GLYCOL 17 GM PACKET PO PRN (04:30)
--- NOTE | 2021-05-08 04:52 | NUR ---
PATIENT ENTIRE FACE IS SWOLLEN, INCLUDING THE LEFT EYE. PATIENT REPORTS SHE CAN SEE OUT OF THE LEFT EYE WHEN SHE FORCES HER EYE LID OPEN BUT IT IS PAINFUL TO OPEN THAT EYE. PATIENT CAN SEE OUT OF THE RIGHT EYE WITHOUT DIFFICULTY. PATIENT DENIES ANY DIFFICULTY BREATHING. PATIENT REPORTS SHE "FEELS LIKE THE SWELLING IS GOING DOWN INTO HER JAW", SHE APPEARS TO HAVE NO DIFFICULTY SPEAKING. PATIENT DENIES N/V AT THIS TIME, DENIES ANY LOSS OF APPITITE. PATIENT WAS IN THE ER YESTERDAY AND WAS GIVEN PRESCRIPTIONS FOR ABX, PAIN, AND STEROIDS, BUT RETURNED TODAY SYMPTOMS BECAME WORSE.
--- NOTE | 2021-05-08 04:54 | NUR ---
Patient placed on O2 after narcotic admin.
--- NOTE | 2021-05-08 05:05 | NUR ---
GAVE REPORT TO RANJIT, PATIENT WILL BE TRANSPORTED TO [facility]
[2021-05-08 05:37] VITALS: BP 152/84
[2021-05-08] MEDS: GABAPENTIN 300 MG CAPSULE PO SCH ×4 (05:55→20:58)
[2021-05-08] MEDS: ACETAMINOPHEN 500 MG TABLET PO PRN (05:55)
[2021-05-08] MEDS: OXYcodone IR 5MG TABLET PO PRN ×3 (05:57→20:58)
[2021-05-08 07:15] VITALS: BP 147/79
[2021-05-08] MEDS: AMLODIPINE 5 MG TABLET PO SCH (08:46)
[2021-05-08] MEDS: METOPROLOL TARTRATE 50 MG TAB PO SCH ×2 (08:46→20:58)
[2021-05-08] MEDS: LIDOCAINE 4% CREAM 15GM TUBE TP SCH ×4 (08:46→20:14)
[2021-05-08] MEDS ORDERED: NICOTINE 21 MG/24 HR PATCH.TD24 TD SCH (12:30)
[2021-05-08] MEDS: ACYCLOVIR 600 MG in SODIUM CHLORIDE 0.9% 100 ML IV SCH ×2 (12:54→20:14)
[2021-05-08 13:07] VITALS: BP 162/50
[2021-05-08] MEDS: ENOXAPARIN 40 MG/0.4 ML SQ SCH (18:41)
[2021-05-08 19:14] VITALS: BP 122/73
[2021-05-08] MEDS: ERYTHROMYCIN OPHTH 0.5%, 1GM EACHEYE SCH (20:58)
[2021-05-08] MEDS: MELATONIN 5 MG TABLET PO PRN (23:27)
[2021-05-09 00:40] VITALS: BP 126/61
[2021-05-09] MEDS: ENOXAPARIN 40 MG/0.4 ML SQ SCH (05:48)
[2021-05-09] MEDS: ERYTHROMYCIN OPHTH 0.5%, 1GM EACHEYE SCH ×4 (05:48→21:22)
[2021-05-09] MEDS: ACYCLOVIR 600 MG in SODIUM CHLORIDE 0.9% 100 ML IV SCH ×2 (05:48→13:01)
[2021-05-09] MEDS: OXYcodone IR 5MG TABLET PO PRN ×4 (05:49→21:23)
[2021-05-09] MEDS: ACETAMINOPHEN 500 MG TABLET PO PRN ×2 (05:49→21:24)
[2021-05-09] MEDS: LIDOCAINE 4% CREAM 15GM TUBE TP SCH ×3 (05:54→21:23)
[2021-05-09 06:56] VITALS: BP 118/75
[2021-05-09] MEDS: AMLODIPINE 5 MG TABLET PO SCH (09:11)
[2021-05-09] MEDS: GABAPENTIN 300 MG CAPSULE PO SCH ×3 (09:12→21:23)
[2021-05-09] MEDS: METOPROLOL TARTRATE 50 MG TAB PO SCH ×2 (09:12→21:24)
[2021-05-09 10:24] LABS: BASOPHILS % (AUTO) 1 % (0-1); EOSINOPHILS % (AUTO) 1 % (1-7); LYMPHOCYTES % (AUTO) 16 % (22-44); MEAN CORPUSCULAR HGB CONC 33.2 g/dL (32.4-35.8); MEAN PLATELET VOLUME 8.5 fL (7.4-10.4); MONOCYTES % (AUTO) 8 % (2-9); NEUTROPHILS % (AUTO) 75 % (42-75); PLATELET COUNT 209 x10^3/uL (130-400); RED BLOOD COUNT 4.32 x10^6/uL (3.82-5.3); RED CELL DISTRIBUTION WIDTH 14.1 % (9.6-15.2)
[2021-05-09 10:30] LABS: ANION GAP 4 mmol/L (5-15); CALCIUM 8.5 mg/dL (8.5-10.1); CHLORIDE 103 mmol/L (98-107); CREATININE 2.96 mg/dL (0.55-1.02)
[2021-05-09] MEDS: NICOTINE 21 MG/24 HR PATCH.TD24 TD SCH (13:01)
[2021-05-09 14:12] VITALS: BP 135/76
[2021-05-09] MEDS: VALACYCLOVIR 500MG TABLET PO SCH ×2 (16:47→21:23)
[2021-05-09] MEDS: CEFTRIAXONE 1,000 MG in DEXTROSE 5% 50 ML IVPB SCH (18:21)
[2021-05-09] MEDS: HEPARIN 5,000 UNITS/ML, 1ML SQ SCH (18:22)
[2021-05-09 19:21] VITALS: BP 150/74
[2021-05-09] MEDS: MELATONIN 5 MG TABLET PO PRN (21:24)
[2021-05-10] MEDS: HEPARIN 5,000 UNITS/ML, 1ML SQ SCH ×3 (01:43→16:39)
[2021-05-10] MEDS: SODIUM CHLORIDE 0.9% 1,000 ML IV SCH ×2 (01:44→15:00)
[2021-05-10 01:50] VITALS: BP 138/76
[2021-05-10 06:03] LABS: BASOPHILS % (AUTO) 1 % (0-1); EOSINOPHILS % (AUTO) 2 % (1-7); LYMPHOCYTES % (AUTO) 24 % (22-44); MEAN CORPUSCULAR HEMOGLOBIN 30.9 pg (27.0-34.8); MEAN CORPUSCULAR HGB CONC 32.9 g/dL (32.4-35.8); MEAN PLATELET VOLUME 8.3 fL (7.4-10.4); MONOCYTES % (AUTO) 9 % (2-9); NEUTROPHILS % (AUTO) 65 % (42-75); PLATELET COUNT 208 x10^3/uL (130-400); RED BLOOD COUNT 4.23 x10^6/uL (3.82-5.3); RED CELL DISTRIBUTION WIDTH 14.1 % (9.6-15.2)
[2021-05-10] MEDS: ERYTHROMYCIN OPHTH 0.5%, 1GM EACHEYE SCH ×4 (06:20→21:20)
[2021-05-10 06:24] LABS: ANION GAP 6 mmol/L (5-15); CALCIUM 8.5 mg/dL (8.5-10.1); CHLORIDE 100 mmol/L (98-107)
[2021-05-10 06:27] LABS: CREATININE 2.59 mg/dL (0.55-1.02)
[2021-05-10 07:04] VITALS: BP 106/68
[2021-05-10 08:32] VITALS: BP 127/68
[2021-05-10] MEDS: GABAPENTIN 300 MG CAPSULE PO SCH ×3 (08:59→21:19)
[2021-05-10] MEDS: METOPROLOL TARTRATE 50 MG TAB PO SCH ×2 (09:00→21:19)
[2021-05-10] MEDS: AMLODIPINE 5 MG TABLET PO SCH (09:00)
[2021-05-10] MEDS: VALACYCLOVIR 500MG TABLET PO SCH ×3 (09:00→21:19)
[2021-05-10] MEDS: LIDOCAINE 4% CREAM 15GM TUBE TP SCH ×3 (09:03→21:19)
[2021-05-10] MEDS: OXYcodone IR 5MG TABLET PO PRN (09:11)
[2021-05-10 12:37] VITALS: BP 156/63
[2021-05-10] MEDS: NICOTINE 21 MG/24 HR PATCH.TD24 TD SCH (13:51)
[2021-05-10 19:16] VITALS: BP 143/56
[2021-05-10] MEDS: CEFTRIAXONE 1,000 MG in DEXTROSE 5% 50 ML IVPB SCH (19:20)
[2021-05-11 01:34] VITALS: BP 141/85
[2021-05-11] MEDS: HEPARIN 5,000 UNITS/ML, 1ML SQ SCH ×2 (01:41→08:21)
[2021-05-11 05:44] LABS: BASOPHILS % (AUTO) 1 % (0-1); EOSINOPHILS % (AUTO) 2 % (1-7); LYMPHOCYTES % (AUTO) 23 % (22-44); MEAN CORPUSCULAR HEMOGLOBIN 30.8 pg (27.0-34.8); MEAN CORPUSCULAR HGB CONC 33.3 g/dL (32.4-35.8); MEAN PLATELET VOLUME 8.4 fL (7.4-10.4); MONOCYTES % (AUTO) 7 % (2-9); NEUTROPHILS % (AUTO) 68 % (42-75); PLATELET COUNT 207 x10^3/uL (130-400); RED BLOOD COUNT 4.25 x10^6/uL (3.82-5.3); RED CELL DISTRIBUTION WIDTH 13.9 % (9.6-15.2)
[2021-05-11 05:57] LABS: CHLORIDE 106 mmol/L (98-107)
[2021-05-11 06:10] LABS: ANION GAP 6 mmol/L (5-15); CALCIUM 8.6 mg/dL (8.5-10.1)
[2021-05-11] MEDS: ERYTHROMYCIN OPHTH 0.5%, 1GM EACHEYE SCH ×2 (06:40→11:44)
[2021-05-11 07:35] VITALS: BP 154/75
[2021-05-11] MEDS: AMLODIPINE 5 MG TABLET PO SCH (08:20)
[2021-05-11] MEDS: METOPROLOL TARTRATE 50 MG TAB PO SCH (08:20)
[2021-05-11] MEDS: VALACYCLOVIR 500MG TABLET PO SCH (08:21)
[2021-05-11] MEDS: LIDOCAINE 4% CREAM 15GM TUBE TP SCH (08:21)
[2021-05-11] MEDS: GABAPENTIN 300 MG CAPSULE PO SCH (08:21)
[2021-05-11] MEDS: SODIUM CHLORIDE 0.9% 1,000 ML IV SCH (08:22)
[2021-05-11] MEDS: ACETAMINOPHEN 500 MG TABLET PO PRN (08:39)
[2021-05-11] MEDS: NICOTINE 21 MG/24 HR PATCH.TD24 TD SCH (12:30)
[2021-05-11] MEDS ORDERED: CEFD300C37 PO (14:11)
[2021-05-11] MEDS ORDERED: NICO-587 TD (14:11)
[2021-05-11] MEDS ORDERED: GABA300C PO (14:11)
[2021-05-11] MEDS ORDERED: LIDO5CRE6 TP (14:11)
[2021-05-11] MEDS ORDERED: VALA500T8 PO (14:11)
[2021-05-11] MEDS ORDERED: SACC250C4 PO (14:14)
[2021-05-11] MEDS ORDERED: OXYC10TA6 PO ×3 (14:17→20:37)
[2021-05-11] MEDS ORDERED: FUROSEMIDE 20 MG/2 ML IV ONE (14:30)
[2021-05-11] MEDS ORDERED: ERYT1OIN5 EACHEYE (14:43)
== END 2021-05-11 17:11 | disposition home or self-care (01) | DRG 595 ==
LOC: ED 03:30 → EDIP 03:55 → 4NE 05:25
PROVIDERS: ADMIT Internal Medicine; ATTEND Internal Medicine
DX: B02.9 Zoster without complications (principal); N17.0 Acute kidney failure with tubular necrosis; L03.211 Cellulitis of face; Z68.42 Body mass index [BMI] 45.0-49.9, adult; I50.9 Heart failure, unspecified; E66.01 Morbid (severe) obesity due to excess calories; E86.0 Dehydration; F17.210 Nicotine dependence, cigarettes, uncomplicated; I11.0 Hypertensive heart disease with heart failure; K74.60 Unspecified cirrhosis of liver; Z85.3 Personal history of malignant neoplasm of breast; Z90.49 Acquired absence of other specified parts of digestive tract; Z90.710 Acquired absence of both cervix and uterus; Z90.12 Acquired absence of left breast and nipple; Z71.6 Tobacco abuse counseling
CPT/HCPCS: 36415; 76770; 80048; 80053; 83735; 84100; 85025; 99285; G0378; J0133; J0696; J1644; J1650; J2405; J2270; J2930; J7030; J7050; J7512